=== PATIENT | male | born 1970 | race Caucasian/White ===

== ENCOUNTER 2023-10-07 22:11 | Emergency (ER) | payer OTHER ==
[2023-10-07 22:24] VITALS: RESP 18; BMI 23.6
[2023-10-07 23:48] LABS: BASO % 1.2 % (0-2.0); EOS % 2.9 % (0-4.5); HEMATOCRIT 39.4 % (35.4-49); HEMOGLOBIN 13.3 GM/dL (11.7-16.9); LYMPH % 26.7 % (8-40); MCH 31.3 pg (25.7-33.7); MCHC 33.8 g/dl (32.0-35.9); MEAN CELL VOLUME 92.6 fl (80-96); MEAN PLT VOLUME 9.3 fl (7.5-11.1); MONO % 6.9 % (3.8-10.2); NEUT % 62.3 % (42.8-82.8); PLATELET COUNT 242 10^3/uL (134-434); RBC 4.25 M/mm3 (4.00-5.60); RDW 13.2 % (11.9-15.9); WHITE BLOOD COUNT 7.7 K/mm3 (4.0-10.0)
[2023-10-08 00:06] LABS: POTASSIUM 4.4 mmol/L (3.5-5.1)
[2023-10-08 00:08] LABS: CALCIUM 9.3 mg/dL (8.5-10.1)
[2023-10-08 00:10] LABS: BLOOD UREA NITROGEN 8.6 mg/dL (7-18); MAGNESIUM 2.3 mg/dL (1.8-2.4)
[2023-10-08 00:12] LABS: CREATININE 1.1 mg/dL (0.55-1.3)
[2023-10-08 00:13] LABS: BILIRUBIN,TOTAL 0.5 mg/dL (0.2-1); TOT PROT 7.2 g/dl (6.4-8.2)
[2023-10-08 01:28] VITALS: BP 129/84; PULSE 64; TEMP 98.2
== END 2023-10-08 02:39 | disposition home or self-care (01) ==
LOC: JER 22:11
DX: R20.0 Anesthesia of skin (principal); G72.0 Drug-induced myopathy; M79.10 Myalgia, unspecified site; G47.00 Insomnia, unspecified
CPT/HCPCS: 36415; 70450-TC; 70496-TC; 70498-TC; 72128-TC; 80053; 83735; 85025; 93005; 93010; 99285-25